=== PATIENT | male | born 1940 | race Caucasian/White ===

== ENCOUNTER 2020-07-05 04:53 | Emergency (ER) | payer MEDICARE ==
[~2020-07-05] VITALS: Ht 180.3 cm; Wt 95.9 kg
--- NOTE | 2020-07-05 05:12 | NUR ---
PT BIB EMS. PATIENT FROM [facility], PATIENT HAD FALL IN BATHROOM, DENIES HITTING HEAD, NO OBVIOUS SIGNS OF TRAUMA. EMS STATED THAT [employer] SAW "SEIZURE LIKE ACTIVITY FOR A SECOND". PATIENT STATES HE REMEMBERS EVERYTHING, BUT HAS A HEADACHE. PATIENT HAS HISTORY OF DEMENTIA, AND ANEMIA. PATIENT GIVEN 650 ML BOLUS, AND PATIENT ONLY TAKES TYLENOL HOME MED. PATIENT RESTING IN BED COMFORTABLY, PATIENT JOKING AROUND, ALL MONITORS IN PLACE
--- NOTE | 2020-07-05 06:55 | NUR ---
REPORT RECEIVED FROM ANNEMARIE FLEMING.
--- NOTE | 2020-07-05 07:48 | NUR ---
this rn called britni halfway x 4 times and no answer.
--- NOTE | 2020-07-05 09:13 | NUR ---
report given to guillermo pandey at [facility]. [facility] will pick him up at outside of er at 9:45am.
[2020-07-05 09:14] VITALS: BP 139/79
--- NOTE | 2020-07-05 09:41 | NUR ---
Patient given discharge instructions and they have confirmed that they understand the instructions. this rn took him to rt entrance by wheelchair at this time. pt is waiting van from [facility].
--- NOTE | 2020-07-05 11:39 | NUR ---
this rn faxed all paper works to [facility]([phone]) at this time.
== END 2020-07-05 09:42 | disposition home or self-care (01) ==
LOC: ED 06:29
DX: S09.90XA Unspecified injury of head, initial encounter (principal); R94.31 Abnormal electrocardiogram [ECG] [EKG]; I10 Essential (primary) hypertension; W01.0XXA Fall on same level from slipping, tripping and stumbling without subsequent striking against object, initial encounter; Y93.01 Activity, walking, marching and hiking; Y92.89 Other specified places as the place of occurrence of the external cause; Y99.8 Other external cause status
CPT/HCPCS: 70450; 93005; 99284

== ENCOUNTER 2021-01-09 09:06 | Emergency (ER) | payer SELFPAY ==
[~2021-01-09] VITALS: Ht 180.3 cm; Wt 75.0 kg
--- NOTE | 2021-01-09 09:20 | NUR ---
THIS IS A 80 YO M BIB EMS FROM [facility] W/ C/O EPISODE OF AMS THIS MORNING WHILE EATING BREAKFAST. PER EMS UPON ARRIVAL FSBS 13, GCS 3. PER EMS PT WAS HYPOTENSIVE SYSTOLIC BP IN 50'S, DIASTOLIC 30'S. PT RECEIVED 500ML LR AND 100ML D10 FRONT OFFICE ATTENDANT. FSBS AT THIS FACILITY 172. 4MG ZOFRAN FRONT OFFICE ATTENDANT. PIV FRONT OFFICE ATTENDANT. PER [facility] PT A&OX3 BASELINE. PT AWAKE AND ALERT, ORIENTED TO TIME, PLACE AND SELF. PT CONFUSED ABOUT WHY HE IS HERE. VSS, KELLEY. PT RESTING ON [employer] W/ CALL LIGHT IN REACH AND SIDE RAILS UPX2. CONNECTED TO ALL MONITORING. RESP EVEN AND UNLABORED, KELLEY. MARCIA VELASCO AT BEDSIDE.
[2021-01-09 09:38] LABS: BASOPHILS % (AUTO) 1 % (0-1); EOSINOPHILS % (AUTO) 4 % (1-7); LYMPHOCYTES % (AUTO) 26 % (22-44); MEAN CORPUSCULAR HEMOGLOBIN 24.4 pg (27.5-34.5); MEAN CORPUSCULAR HGB CONC 32.5 g/dL (33.2-36.2); MEAN PLATELET VOLUME 7.6 fL (7.4-10.4); MONOCYTES % (AUTO) 8 % (2-9); NEUTROPHILS % (AUTO) 62 % (42-75); PLATELET COUNT 298 x10^3/uL (130-400); RED BLOOD COUNT 4.39 x10^6/uL (4.38-5.82); RED CELL DISTRIBUTION WIDTH 14.6 % (9.4-14.8)
[2021-01-09 09:43] LABS: MD NO
[2021-01-09] MEDS ORDERED: MAGN400O7 PO (09:48)
[2021-01-09] MEDS ORDERED: ONDA4TAB7 PO (09:48)
[2021-01-09] MEDS ORDERED: MULT-697 PO (09:48)
[2021-01-09] MEDS ORDERED: ACET325T26 PO (09:48)
[2021-01-09] MEDS ORDERED: LOPE2CAP PO (09:48)
[2021-01-09 09:49] LABS: ALANINE AMINOTRANSFERASE 12 U/L (12-78); ALBUMIN 3.1 g/dL (3.4-5.0); ANION GAP 5 mmol/L (5-15); CALCIUM 7.9 mg/dL (8.5-10.1); CHLORIDE 110 mmol/L (98-107); CREATININE 0.95 mg/dL (0.7-1.3)
[2021-01-09 09:51] LABS: ALKALINE PHOSPHATASE 79 U/L (45-117); BILIRUBIN,TOTAL 0.5 mg/dL (0.2-1.0); TOTAL PROTEIN 6.3 g/dL (6.4-8.2)
--- NOTE | 2021-01-09 10:02 | NUR ---
PT SLEEPING ON GURNEY W/ CALL LIGHT IN REACH AND SIDE RAILS UPX2. VSS, MAGDALENAN. AWAITING LAB RESULTS.
--- NOTE | 2021-01-09 10:22 | NUR ---
BREAK RN- KAYLIN OSCAR TAN ROOM SUPERVISOR AT BEDSIDE FOR EVALUATION. MEAL PROVIDED.
[2021-01-09 11:34] VITALS: BP 125/75
--- NOTE | 2021-01-09 11:36 | NUR ---
PT REMOVED PIV, MONITORING AND CLOTHING. CATH TIP INTACT. VSS, NADN. PT PROVED W/ DRY CLOTHES FOR TRANSPORT BACK TO [facility].
--- NOTE | 2021-01-09 11:59 | NUR ---
PT VERBALIZED UNDERSTANDING OF DC INSTRUCTIONS, TRANSPORTED BACK TO [facility] VIA [facility]. PT AWAKE AND ALERT. PT RESP EVEN AND UNLABORED, KELLEY.
== END 2021-01-09 12:02 | disposition home or self-care (01) ==
LOC: ED 10:14
DX: K92.2 Gastrointestinal hemorrhage, unspecified (principal); E16.2 Hypoglycemia, unspecified; D64.9 Anemia, unspecified; R94.31 Abnormal electrocardiogram [ECG] [EKG]
CPT/HCPCS: 36415; 80053; 82962; 85025; 93005; 99284